=== PATIENT | male | born 1980 | race Caucasian/White ===

== ENCOUNTER → 2020-11-24 | Outpatient (CLI) | payer OTHER ==
--- NOTE | 2020-11-24 11:24 | KCIC ---
MR CERVICAL SPINE WO DATE: 11/24/2020 9:40 AM INDICATION: ACUTE CERVICAL STRAIN. Pain when doing a pull up end of September. Headaches and BUE tinglin g. TECHNIQUE: Multiplanar multisequence magnetic resonance imaging of the cervical spine was performed w ithout administration of intravenous contrast using the standard cervical spine protocol. COMPARISON: CT 10/03/2020. FINDINGS: The cervical spine is normally aligned. No acute fracture. Mild multilevel degenerative disc desicca tion. Bone marrow signal intensity is normal. The spinal cord is normal in signal intensity. On the limited views of the cranial cavity and brain, the cerebellum and corinna have normal morphology and signal characteristics. No Chiari malformation. No soft tissue abnormality. Normal signal voids are present in the vertebral arteries. Mild facet arthropathy at C7-T1 on the left. No significant spinal canal stenosis or neural foraminal narrowing. IMPRESSION: Mild cervical spondylosis. No significant spinal canal stenosis or neural foraminal narrowing. Electronically signed by: Mendez Richardson MD (11/24/2020 11:22 AM) [id number]
== END ==
LOC: KCIC MRI 09:19
PROVIDERS: ATTEND Physician Assistant
DX: S16.1XXA Strain of muscle, fascia and tendon at neck level, initial encounter (principal); M47.23 Other spondylosis with radiculopathy, cervicothoracic region; X58.XXXA Exposure to other specified factors, initial encounter; Y93.89 Activity, other specified; Y92.89 Other specified places as the place of occurrence of the external cause; Y99.8 Other external cause status
CPT/HCPCS: 72141